=== PATIENT | female | born 1975 | race Caucasian/White ===

== ENCOUNTER 2018-10-10 14:32 | Observation (INO) | payer BC ==
--- NOTE | 2018-10-10 16:14 | NUR ---
The patient, ASYA ECHEVARRIA, 43 y/o, F admitted by INDIO MCCLURE MD, was given written information regarding hospital policies, unit procedures and contact persons. Valuables were checked and left with patient at bedside.
[2018-10-10] MEDS ORDERED: THYR30TA PO (16:19)
[2018-10-10] MEDS ORDERED: LEVO200T PO (16:19)
[2018-10-10] MEDS ORDERED: BUPR150T15 PO (16:19)
[2018-10-10] MEDS ORDERED: oxyCODONE IR 5 MG TABLET PO PRN (16:30)
[2018-10-10] MEDS ORDERED: ONDANSETRON PF 4 MG/2 ML VIAL. IV PRN (16:30)
[2018-10-10] MEDS ORDERED: BISACODYL 10 MG SUPP.RECT. PR PRN (16:30)
[2018-10-10] MEDS ORDERED: MAGNESIUM HYDROXIDE 2,400 MG/30 ML ORAL.SUSP. PO PRN (16:30)
[2018-10-10] MEDS ORDERED: ZOLPIDEM 5 MG TABLET. PO PRN (16:30)
[2018-10-10] MEDS ORDERED: ACETAMINOPHEN 325 MG TABLET. PO PRN (16:30)
[2018-10-10] MEDS ORDERED: PROCHLORPERAZINE 25 MG SUPP.RECT. PR PRN (16:30)
[2018-10-10] MEDS ORDERED: MAG HYDROX/ALUMINUM HYD/SIMETH 30 ML ORAL.SUSP PO PRN (16:30)
[2018-10-10] MEDS ORDERED: PROCHLORPERAZINE 10 MG/2 ML VIAL. IV PRN (16:30)
[2018-10-10] MEDS ORDERED: MORPHINE SULFATE 2 MG/ML VIAL. IV PRN (16:30)
[2018-10-10] MEDS ORDERED: CALCIUM CARBONATE 500 MG TAB.CHEW PO PRN (16:30)
[2018-10-10] MEDS ORDERED: IBUPROFEN 400 MG TABLET. PO PRN (16:30)
--- NOTE | 2018-10-10 16:39 | PDOC1 ---
History and Physical Date of Admission Date of Admission DATE: 10/10/18 TIME: 16:34 Identification/Chief Complaint Chief Complaint dizzy, left arm and leg numb Source Source: Caregiver, Chart review, Patient History of Present Illness History of Present Illness 42 white female, malcolm, only takes 3 meds namely Synthroid, thyroid pork, Wellbutrin. Transfer from [place] for need for MRI and neurology consult. 11 PM last night, complained of dizzy, left arm numb then the left leg. Family noticed slurred speech she did not. NO facial asymmetry reported She claims may be at one point she couldn't speak. No seizure-like activity. No known history CAD diabetes hypertension or stroke. No known drug allergies. At the emergency room [place], positive pronator drift left, some dysmetria on the left hand rest neuro exam ok,Labs and CT head and CTA head neck [place], ok: CTA head and neck IMPRESSION: 1. No significant atherosclerotic disease is identified at either carotid bifurcation. 2. No major intracranial arterial occlusion or stenosis is identified. CT head: IMPRESSION: No acute intracranial abnormality is detected. Past Medical History Psych: Depression Endocrine: Hypothyroidism Past Surgical History Past Surgical History: Tubal Ligation, Tonsillectomy Family History Family History: No Significant Social History Smoke: No ALCOHOL: occassional Drugs: None Current Medications Current Medications Active Scripts Active Reported Wellbutrin Xl (Bupropion Hcl) 150 Mg Tab.er.24h 150 Mg PO DAILY [place] Thyroid (Thyroid,Pork) 30 Mg Tablet 30 Mg PO DAILY Synthroid (Levothyroxine Sodium) 200 Mcg Tablet 200 Mcg PO DAILYAC Allergies Allergies: Coded Allergies: No Known Drug Allergies (Unverified , 10/10/18) ROS Review of System As per history of present illness, the rest of ROS 14 point negative Physical Exam General: Alert, Oriented X3, Cooperative, No acute distress HEENT: Atraumatic, PERRLA, EOMI Lungs: Clear to auscultation, Normal air movement Heart: S1S2, RRR, no thrills, no rubs, no gallops, no murmurs Cardiovascular: S1, S2 Breasts: Normal, Rt breast nml w/o mass, Lt breast nml w/o mass, Nipples normal Abdomen: Normal bowel sounds, Soft, No tenderness, No hepatosplenomegaly, No masses Rectal Exam: not examined PELVIC: Nml ext genitalia Extremities: No clubbing, No cyanosis, No edema, Normal pulses, No tenderness/swelling Skin: No rashes, No breakdown, No significant lesion Neuro: Normal gait, Normal speech, Strength at 5/5 X4 ext, Normal tone, Sensation intact, Cranial nerves 3-12 NL, Reflexes 2+, Other (left hand dysmetria and left pronator drip) Psych/Mental Status: Mental status NL, Mood NL VTE Prophylaxis Ordered VTE Prophylaxis Devices: Yes VTE Pharmacological Prophylaxi: Yes Assessment/Plan Assessment/Plan Dizziness since 11 PM, left UE/left lower extremity numbness-getting better Left hand dysmetria, positive pronator drift Hypothyroidism on thyroid pork and Synthroid Depression NOS on Wellbutrin Plan MRI brain, neurology consult Did get aspirin at ER [place] Okay to resume home meds Okay to have regular diet Further recs pending above MRI tmr Discussed with RN at bedside INDIO MCCLURE MD October 10, 2018 16:39
[2018-10-10] MEDS ORDERED: IV NORMAL SALINE 1000ML BAG 1,000 ML IV SCH (17:00)
[2018-10-10 19:53] VITALS: BP 101/63
[2018-10-10 23:59] VITALS: BP 98/55
[2018-10-11 03:30] VITALS: BP 93/56
[2018-10-11] MEDS ORDERED: LEVOTHYROXINE 100 MCG TABLET PO SCH (06:00)
[2018-10-11 07:28] VITALS: BP 105/58
[2018-10-11] MEDS ORDERED: THYROID,PORK 60 MG TABLET PO SCH (09:00)
[2018-10-11] MEDS ORDERED: buPROPion XL 150 MG TAB.ER.24H. PO SCH (09:00)
--- NOTE | 2018-10-11 10:21 | RAD ---
MRI of the brain without contrast 10/11/2018 Clinical History: Dizziness with left leg numbness. Technique: Unenhanced T1-weighted sagittal and axial, T2-weighted axial and coronal and FLAIR, gradient echo and diffusion-weighted axial images of the brain were obtained. Findings: Comparison is made to patient's CT scan of the head dated 10/10/2018. The ventricles and sulci are within normal limits in size and configuration. No area of significant abnormal signal intensity is seen involving brain parenchyma. No extra-axial fluid collection is seen. There is no MRI evidence of acute ischemia/infarction. Mild mucosal thickening in seen scattered throughout the paranasal sinuses. A 1 cm mucous retention cyst is seen involving the right maxillary sinus. Prominence of the adenoid tonsils is seen. Normal flow voids are seen within the major vascular structures surrounding the brain parenchyma. Impression: 1. Negative MRI of the brain. 2. Mild paranasal sinus disease. Electronically signed by: Neville Garcia MD (10/11/2018 10:18 AM) [id number]
[2018-10-11 10:27] LABS: BASO % 1 % (0-3); EOS # 0.2 x10^3/uL (0.0-0.7); EOS % 3 % (0-3); HEMATOCRIT 31.8 % (36.0-47.0); HEMOGLOBIN 10.3 g/dL (12.0-15.5); LYMPH # 1.3 x10^3/uL (1.0-4.8); LYMPH % 26 % (24-48); MEAN CORPUSCULAR HEMOGLOBIN 24 pg (25-35); MEAN CORPUSCULAR HGB CONC 32 g/dL (31-37); MEAN CORPUSCULAR VOLUME 75 fL (79-100); MONO # 0.4 x10^3/uL (0.0-1.1); MONO % 7 % (0-9); NEUT # 3.1 x10^3uL (1.8-7.7); NEUT % 63 % (31-73); PLATELET COUNT 226 x10^3/uL (140-400); RED BLOOD COUNT 4.22 x10^6/uL (3.50-5.40); RED CELL DISTRIBUTION WIDTH 16.8 % (11.5-14.5); WHITE BLOOD COUNT 4.9 x10^3/uL (4.0-11.0)
[2018-10-11 10:29] LABS: CALCIUM 8.4 mg/dL (8.5-10.1); CREATININE 0.8 mg/dL (0.6-1.0); GFR 77.6; POTASSIUM 3.9 mmol/L (3.5-5.1)
[2018-10-11 10:40] VITALS: BP 107/65
--- NOTE | 2018-10-11 10:55 | PDOC3 ---
Discharge Summary Visit Information Date of Admission: October 10, 2018 Date of Discharge: October 11, 2018 Admitting Diagnosis Comment: Sinusitis No acute CVA Left-sided numbness, slurred speech transient-, resolved Reversible cerebral ischemic syndrome? Brief Hospital Course Allergies Allergies Coded Allergies Type Severity Reaction Last Updated Verified No Known Drug Allergies 10/10/18 No Vital Signs Vital Signs Date Time Temp Pulse Resp B/P (MAP) Pulse Ox O2 Delivery O2 Flow Rate FiO2 10/11/18 10:40 98.2 76 18 107/65 (79) 99 Room Air 98.2 Lab Results Laboratory Tests Test 10/11/18 09:50 White Blood Count 4.9 x10^3/uL (4.0-11.0) Red Blood Count 4.22 x10^6/uL (3.50-5.40) Hemoglobin 10.3 g/dL (12.0-15.5) Hematocrit 31.8 % (36.0-47.0) Mean Corpuscular Volume 75 fL (79-100) Mean Corpuscular Hemoglobin 24 pg (25-35) Mean Corpuscular Hemoglobin Concent 32 g/dL (31-37) Red Cell Distribution Width 16.8 % (11.5-14.5) Platelet Count 226 x10^3/uL (140-400) Neutrophils (%) (Auto) 63 % (31-73) Lymphocytes (%) (Auto) 26 % (24-48) Monocytes (%) (Auto) 7 % (0-9) Eosinophils (%) (Auto) 3 % (0-3) Basophils (%) (Auto) 1 % (0-3) Neutrophils # (Auto) 3.1 x10^3uL (1.8-7.7) Lymphocytes # (Auto) 1.3 x10^3/uL (1.0-4.8) Monocytes # (Auto) 0.4 x10^3/uL (0.0-1.1) Eosinophils # (Auto) 0.2 x10^3/uL (0.0-0.7) Basophils # (Auto) 0.0 x10^3/uL (0.0-0.2) Sodium Level 143 mmol/L (136-145) Potassium Level 3.9 mmol/L (3.5-5.1) Chloride Level 108 mmol/L (98-107) Carbon Dioxide Level 26 mmol/L (21-32) Anion Gap 9 (6-14) Blood Urea Nitrogen 7 mg/dL (7-20) Creatinine 0.8 mg/dL (0.6-1.0) Estimated GFR (Cockcroft-Gault) 77.6 Glucose Level 97 mg/dL (70-99) Calcium Level 8.4 mg/dL (8.5-10.1) Laboratory Tests Test 10/11/18 09:50 White Blood Count 4.9 x10^3/uL (4.0-11.0) Red Blood Count 4.22 x10^6/uL (3.50-5.40) Hemoglobin 10.3 g/dL (12.0-15.5) Hematocrit 31.8 % (36.0-47.0) Mean Corpuscular Volume 75 fL (79-100) Mean Corpuscular Hemoglobin 24 pg (25-35) Mean Corpuscular Hemoglobin Concent 32 g/dL (31-37) Red Cell Distribution Width 16.8 % (11.5-14.5) Platelet Count 226 x10^3/uL (140-400) Neutrophils (%) (Auto) 63 % (31-73) Lymphocytes (%) (Auto) 26 % (24-48) Monocytes (%) (Auto) 7 % (0-9) Eosinophils (%) (Auto) 3 % (0-3) Basophils (%) (Auto) 1 % (0-3) Neutrophils # (Auto) 3.1 x10^3uL (1.8-7.7) Lymphocytes # (Auto) 1.3 x10^3/uL (1.0-4.8) Monocytes # (Auto) 0.4 x10^3/uL (0.0-1.1) Eosinophils # (Auto) 0.2 x10^3/uL (0.0-0.7) Basophils # (Auto) 0.0 x10^3/uL (0.0-0.2) Sodium Level 143 mmol/L (136-145) Potassium Level 3.9 mmol/L (3.5-5.1) Chloride Level 108 mmol/L (98-107) Carbon Dioxide Level 26 mmol/L (21-32) Anion Gap 9 (6-14) Blood Urea Nitrogen 7 mg/dL (7-20) Creatinine 0.8 mg/dL (0.6-1.0) Estimated GFR (Cockcroft-Gault) 77.6 Glucose Level 97 mg/dL (70-99) Calcium Level 8.4 mg/dL (8.5-10.1) Brief Hospital Course Ms. Pastrana is a 43 old who only takes Wellbutrin and Synthroid medication, family noticed slurred speech, she noted some left upper and left LE numbness that resolved on its own, lasted few hrs only. Pronator drift on the left pos itive. Hence transferred from [place] here. CT head and CTA head neck at [place]'s negative. Blood pressure actually not high, 100 systolic MRI here was negative for acute CVA, just sinusitis. I discharged her an aspirin 325 and OTC H1 antagonists Discharge Information Condition at Discharge: Improved, Stable Disposition/Orders: D/C to Home Scheduled Bupropion Hcl (Wellbutrin Xl) 150 Mg Tab.er.24h, 150 MG PO DAILY for anxiey/depression, (Reported) Entered as Reported by: LUIS CHAN on 10/10/181618 Last Action: Continued on 10/10/181633 by INDIO MCCLURE Levothyroxine Sodium (Synthroid) 200 Mcg Tablet, 200 MCG PO DAILYAC for THYROID SUPPLEMENT, #30 Ref 0 (Reported) Entered as Reported by: LUIS CHAN on 10/10/181618 Last Action: Converted on 10/10/181633 by INDIO MCCLURE Thyroid,Pork ([place] Thyroid) 30 Mg Tablet, 30 MG PO DAILY for hypothyroid, (Reported) Entered as Reported by: LUIS CHAN on 10/10/181618 Last Action: Converted on 10/10/181633 by INDIO ORDOÑEZ MD October 11, 2018 10:55
[2018-10-11 11:02] LABS: PROTHROMBIN TIME PATIENT 13.6 SEC (11.7-14.0)
--- NOTE | 2018-10-11 12:25 | NUR ---
Discharge Note: ASYA ECHEVARRIA Discharge instructions and discharge home medications reviewed with Patient and a copy given. All questions have been answered and understanding verbalized. The following instructions and handouts were given: DIET, ACTIVITY, MEDICATION LIST, AND FOLLOW-UP. Discontinued lines and drains: Peripheral IV DISCONTINUED AND CATHETER intact. Patient discharged to Home or Self Care with SPOUSE via Wheelchair
--- NOTE | 2018-10-11 15:08 | PDOC ---
Provider Note Provider Note patient discharged prior to my seeing her, note normal MRI BINU PAINTER MD October 11, 2018 15:08
== END 2018-10-11 12:25 | disposition home or self-care (01) ==
LOC: INTOOBSV 16:11 → 6 SOUTH 16:11
PROVIDERS: ADMIT Internal Medicine; ATTEND Internal Medicine
DX: R42 Dizziness and giddiness (principal); R47.81 Slurred speech; E03.9 Hypothyroidism, unspecified; F32.9 Major depressive disorder, single episode, unspecified; R20.0 Anesthesia of skin
CPT/HCPCS: 36415; 70551; 80048; 85025; 85610; 96360; 96361; G0378; G0379; J7030

== ENCOUNTER → 2020-01-29 | Outpatient (CLI) | payer BC ==
[~2020-01-29] MED LIST: BUPR150T15 PO; LEVO200T PO; THYR30TA PO
== END ==
LOC: ONCLAB 14:02
PROVIDERS: ATTEND Internal Medicine Hematology & Oncology
DX: D64.9 Anemia, unspecified (principal)
CPT/HCPCS: 36415; 82525; 82607; 82746